=== PATIENT | male | born 1990 | race Two or more races ===

== ENCOUNTER 2023-04-16 06:07 | Inpatient (IN) | payer BC, SELFPAY ==
[2023-04-16 06:10] VITALS: BP 141/108; PULSE 122; RESP 16; TEMP 37.3; O2SAT 99; BMI 27.0
--- NOTE | 2023-04-16 06:40 | XR_ITS ---
The [address] [address] Patient Name: REX SHEIKH MRN: [id number] date: 1990 Sex: M Assigned Patient Location: ER Current Patient Location: .[facility] Accession/Order Number: [id number] Exam Date: 04/16/2023 06:45 Report Date: 04/16/2023 07:27 At the request of: THU MARKER Procedure: XR foot LT min 3V EXAM: XR foot LT min 3V HISTORY: Assess for osteomyelitis; technologist notes state diabetic with recurrent left great toe wound. COMPARISON: None. TECHNIQUE: AP, oblique and lateral views of the left foot performed. FINDINGS: The bony alignment and mineralization are within normal limits. There is no fracture, osseous destruction or periostitis. There are no plain film radiographic findings of acute osteomyelitis. The joint spaces are normal. There is a small enthesophyte at the calcaneal attachment of the plantar fascia. There is soft tissue prominence of the great toe. Correlation with clinical findings recommended to differentiate the patient's body habitus from soft tissue swelling. There is no soft tissue gas or radiopaque foreign body. XR/XR foot LT min 3V IMPRESSION: There is no acute osseous abnormality. There are no plain film radiographic findings of acute osteomyelitis. There is soft tissue prominence of the great toe. Correlation with clinical findings recommended to differentiate the patient's body habitus from soft tissue swelling. There is no soft tissue gas or radiopaque foreign body. Electronically authenticated by: ELISABETH ALMANZAR Date: 04/16/2023 07:27
--- NOTE | 2023-04-16 06:42 | ED.EXTPRO1 ---
HPI - Extremity Problem General Chief complaint: Wound/Laceration Stated complaint: L FOOT PAIN Time Seen by Provider: 04/16/23 06:17 Source: patient Mode of arrival: walk-in History of Present Illness HPI Narrative: This 32-year-old male who has been a type I diabetic since age 14 presents for evaluation of redness, pain and swelling to the medial aspect of the left great toe where he has a chronic Callus and ulcer. He has been seen in the past by Dr. Orellana from podiatry with recommendation for surgical removal of the area. He states that he is a poorly controlled diabetic because he only takes his insulin when he is not feeling well or he is dizzy and his hemoglobin A1c was very high so the surgery was not scheduled. 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 He has been seen and treated in this emergency department for this in the past. He states he has not been on antibiotics for several months. He also has pain in the left inguinal region. He states he had this pain in the past when he had an infection in the leg. There is no lymphangitic streaking. He denies any chest pain or shortness of breath. He states he did have some chills this morning but does not have a notable fever. Related Data Home Medications Medication Instructions Recorded Confirmed insulin detemir U-100 100 unit/mL 30 unit subcut DAILY 04/16/23 04/16/23 (3 mL) subcutaneous pen (Levemir FlexPen) Allergies Allergy/AdvReac Type Severity Reaction Status Date / Time No Known Drug Allergies Allergy Verified 04/16/23 09:55 Review of Systems ROS Status of ROS 10 or more systems reviewed and unremarkable except as noted in history and below [facility] Medical History (Updated 04/16/23 @ 16:54 by Andres Edwards DPM) Social History (Updated 04/16/23 @ 11:36 by Lotus Duggan) Within the past year, how often did you have a drink containing alcohol: 2-4 times a month Within the past year, how many standard drinks containing alcohol did you have on a typical day: 5 or 6 Within the past year, how often did you have six or more drinks on one occasion: never Total score: 4 Score interpretation: A score of 4 or more indicates drinking is likely to affect patient's safety. 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 Is afebrile, tachycardic with elevated blood pressure at 141/108 General: The patient appears well and in no apparent distress. Patient is resting comfortably on cart. Skin: Warm, dry, no pallor noted. There is no rash noted. Head: Normocephalic, atraumatic Eye: Normal conjunctiva, no drainage, EOMI. PERRL Ears, Nose, Mouth, and Throat: oral mucosa is moist. Cardiovascular: Regular Rate and Rhythm S1 and S2, no murmurs rubs or gallops, patient is tachycardic with pulse in the 120s Respiratory: Patient is in no distress, no accessory muscle use, lungs are clear to auscultation, no wheezing, rales or rhonchi Back: non-tender, no CVA tenderness bilaterally to percussion. GI: Normal bowel sounds, no tenderness to palpation, no masses appreciated. No rebound, guarding, or rigidity noted. Musculoskeletal: There is redness and swelling to the left great toe with a large, dry callous on the medial aspect of the left great toe, no drainage able to be expressed. There is no redness to the foot, ankle, knee or thigh, there is tenderness in the left inguinal region where there are some enlarged lymph nodes. Additional dry callous on the right great toe that does not appear to be infected. Neurological: A&O x4, normal speech Psychiatric: Cooperative Constitutional Vital Signs, click to edit/add: Last Vital Signs Temp 98.0 F 04/16/23 14:00 Pulse 88 04/16/23 14:00 Resp 18 04/16/23 14:00 BP 111/75 04/16/23 14:00 Pulse Ox 97 04/16/23 14:00 O2 Del Method Room Air 04/16/23 14:00 Course Vital Signs Vital signs: Vital Signs Temperature 99.1 F 04/16/23 06:10 Pulse Rate 122 H 04/16/23 06:10 Respiratory Rate 16 04/16/23 06:10 Blood Pressure 141/108 H 04/16/23 06:10 Pulse Oximetry 99 04/16/23 06:10 Oxygen Delivery Method Room Air 04/16/23 06:10 Temperature 98.0 F 04/16/23 14:00 Pulse Rate 88 04/16/23 14:00 Respiratory Rate 18 04/16/23 14:00 Blood Pressure 111/75 04/16/23 14:00 Pulse Oximetry 97 04/16/23 14:00 Oxygen Delivery Method Room Air 04/16/23 14:00 MDM - Extremity (Nontraumatic) MDM Narrative Medical decision making narrative: This 32-year-old male with a history of insulin-dependent diabetes who is noncompliant presents for evaluation of a chronic ulcer on the medial aspect of the left great toe which has recently become more inflamed, red with drainage that is purulent and foul-smelling. He was noted to be tachycardic with elevated blood pressure. He is not septic or toxic in appearance. An IV was placed and he was given IV Unasyn. Labs and x-ray were ordered. I also ordered an ultrasound of the left lower extremity due to pain in the inguinal region. He will be signed out to Dr. Hector at 7 AM. Lab Data Labs: Lab Results 04/16/23 Range/Units 06:40 WBC 16.2 H (4.0-11.0) 10^3/uL RBC 5.30 (4.70-6.10) 10^6/uL Hgb 15.7 (14.0-18.0) g/dL Hct 44.2 (42.0-54.0) % MCV 83.4 (80.0-94.0) fL MCH 29.6 (25.9-34.0) pg MCHC 35.5 H (29.9-35.2) g/dL RDW 13.5 (11.0-15.0) % Plt Count 278 (150-450) 10^3/uL MPV 9.4 L (9.5-13.5) fL Neut % (Auto) 76.6 H (43.0-75.0) % Lymph % (Auto) 14.5 L (20.5-60.0) % [place] % (Auto) 7.6 (1.7-12.0) % Eos % (Auto) 0.7 L (0.9-7.0) % Baso % (Auto) 0.2 (0.2-2.0) % Neut # (Auto) 12.4 H (1.4-6.5) 10^3/uL Lymph # (Auto) 2.4 (1.2-3.8) 10^3/uL [place] # (Auto) 1.2 H (0.3-0.8) 10^3/uL Eos # (Auto) 0.1 (0.0-0.7) 10^3/uL Baso # (Auto) 0.0 (0.0-0.1) 10^3/uL Abs Immat Gran (auto) 0.06 H (0.00-0.03) 10^3/uL Imm/Tot Granulo (auto) 0.4 (0.0-0.5) % ESR 14 (<=15) mm/hr Sodium 134 L (136-145) mmol/L Potassium 3.8 (3.5-5.1) mmol/L Chloride 97 L (98-107) mmol/L Carbon Dioxide 26.7 (21.0-32.0) mmol/L Anion Gap 14.1 BUN 14.0 (7.0-18.0) mg/dL Creatinine 1.05 (0.70-1.30) mg/dL Est GFR ( Amer) >60 (>=60) Est GFR (Non-Af Amer) >60 (>=60) BUN/Creatinine Ratio 13.3 Glucose 288 H (74-106) mg/dL Estimat Average Glucose 306 mg/dL Hemoglobin A1c 12.3 H (4.5-6.2) % Lactate 1.2 (0.4-2.0) mmol/L Calcium 9.1 (8.5-10.1) mg/dL Total Bilirubin 1.2 H (0.2-1.0) mg/dL AST 12 L (15-37) U/L ALT 26 (16-63) U/L Alkaline Phosphatase 109 (46-116) U/L C-Reactive Protein <0.2 (<=1.0) mg/dL Total Protein 8.2 (6.4-8.2) g/dL Albumin 4.2 (3.4-5.0) g/dL Globulin 4.0 g/dL Albumin/Globulin Ratio 1.0 Acetone, Qual Negative (NEGATIVE) Discharge Plan Discharge Chief Complaint: Wound/Laceration Clinical Impression: Diabetic foot ulcer associated with type 1 diabetes mellitus Patient Disposition: Admitted As Inpatient Time of Disposition Decision: 07:43 Condition: Good Discharge Date/Time: 04/16/23 09:34
--- NOTE | 2023-04-16 06:48 | US_ITS ---
The [place] [id number] Patient Name: REX SHEIKH MRN: [id number] date: 1990 Sex: M Assigned Patient Location: ED.MAIN Current Patient Location: ER Accession/Order Number: [id number] Exam Date: 04/16/2023 07:15 Report Date: 04/16/2023 07:39 At the request of: THU LEYVA Procedure: US venous doppler LE LT EXAMINATION: US venous doppler LE LT HISTORY: leg pain, swelling COMPARISON: No relevant comparison available. FINDINGS: REGION: Left lower extremity THROMBI: None. COMPRESSIBILITY: Normal compressibility. FLOW: Normal waveform and antegrade flow between 5 and 20 cm/s. OTHER: None. US/US venous doppler LE LT IMPRESSION: 1. No deep vein thrombus within the left lower extremity. Electronically authenticated by: YUE HUSTON Date: 04/16/2023 07:39
[2023-04-16 06:56] LABS: Acetone NEGATIVE (NEGATIVE); Basophils Percent Auto 0.2 % (0.2-2.0); Eosinophils Absolute Auto 0.1 10^3/uL (0.0-0.7); Eosinophils Percent Auto 0.7 % (0.9-7.0); Hematocrit 44.2 % (42.0-54.0); Hemoglobin 15.7 g/dL (14.0-18.0); Immature Granulocytes Abs Auto 0.06 10^3/uL (0.00-0.03); Immature Granulocytes Pct Auto 0.4 % (0.0-0.5); Lymphocytes Absolute Auto 2.4 10^3/uL (1.2-3.8); Lymphocytes Percent Auto 14.5 % (20.5-60.0); Mean Corpuscular HGB Conc 35.5 g/dL (29.9-35.2); Mean Corpuscular Hemoglobin 29.6 pg (25.9-34.0); Mean Corpuscular Volume 83.4 fL (80.0-94.0); Mean Platelet Volume 9.4 fL (9.5-13.5); Monocytes Absolute Auto 1.2 10^3/uL (0.3-0.8); Monocytes Percent Auto 7.6 % (1.7-12.0); Neutrophils Absolute Auto 12.4 10^3/uL (1.4-6.5); Neutrophils Percent Auto 76.6 % (43.0-75.0); Platelet Count 278 10^3/uL (150-450); Red Cell Distribution Width 13.5 % (11.0-15.0); White Blood Count 16.2 10^3/uL (4.0-11.0)
--- NOTE | 2023-04-16 07:00 | PC.NURSE ---
PATIENT C/O PAIN IN LEFT GREAT TOE AND LEFT GROIN. STATES HE HAS HAD THIS PAIN BEFORE LAST YEAR THE FIRST TIME THE TOE GOT INFECTED. HE WAS GIVEN ANTIBIOTICS AND FOLLOWED UP WITH ELISABETH CORADO FOR SURGERY. SURGERY WAS CANCELLED DUE TO PATIENT A1C BEING TOO HIGH. PATIENT IS UNCOMPLIANT TYPE 1 DIABETIC. STATES HE ONLY TAKES INSULIN WHEN HE FEELS HE NEEDS TOO. ALSO STATES HE ONLY TAKES HIS SUGAR WHEN HE FEELS LIKE IT. PATIENT STATES HE TAKES NONE OF HIS MEDS EVERYDAY. PATIENT STATES HE HAS BEEN PUTTING METAHONEY AND MONITORING TOE. TOE IS SWOLLEN, RED, POSSIBLE TUNNELING ITS HARD TO TELL WITH CALLUS. PATIENT HAS INTENSE PAIN WHEN TOUCHED. PAIN RADIATES TO LEFT GROIN. STATES HE HAS HAD FOUL SMELLING DRAINAGE BUT DOES NOT HAVE IT NOW
[2023-04-16] MEDS: AMPICILLIN SODIUM/SULBACTAM NA 3 GM in 0.9 % SODIUM CHLORIDE 100 ML IV (07:04)
[2023-04-16] MEDS: 0.9 % SODIUM CHLORIDE 1,000 ML 1000 ML IV (07:05)
[2023-04-16 07:06] LABS: Alanine Aminotransferase 26 U/L (16-63); Albumin Level 4.2 g/dL (3.4-5.0); Alkaline Phosphatase 109 U/L (46-116); Anion Gap 14.1; Aspartate Amino Transferase 12 U/L (15-37); BUN Creatinine Ratio 13.3; Bilirubin Total 1.2 mg/dL (0.2-1.0); Calcium 9.1 mg/dL (8.5-10.1); Carbon Dioxide 26.7 mmol/L (21.0-32.0); Chloride 97 mmol/L (98-107); Estimated GFR (African America >60 (>=60); Estimated GFR (Non-African Ame >60 (>=60); Glucose 288 mg/dL (74-106); Potassium 3.8 mmol/L (3.5-5.1); Sodium 134 mmol/L (136-145); Total Protein 8.2 g/dL (6.4-8.2)
[2023-04-16 07:09] LABS: Lactate/Lactic Acid 1.2 mmol/L (0.4-2.0)
[2023-04-16 07:33] LABS: C Reactive Protein <0.2 mg/dL (<=1.0)
[2023-04-16 07:43] LABS: Erythrocyte Sedimentation Rate 14 mm/hr (<=15)
[2023-04-16 07:48] VITALS: PULSE 110; O2SAT 97
--- NOTE | 2023-04-16 07:59 | ED_ITS ---
HPI - Wound/Laceration General Chief Complaint: Wound/Laceration Stated Complaint: L FOOT PAIN Time Seen by Provider: 04/16/23 06:17 Source: patient Mode of arrival: walk-in History of Present Illness HPI narrative: please see Dr. Black's full history and physical. Related Data Home Medications Medication Instructions Recorded Confirmed No Known Home Medications 04/16/23 04/16/23 Allergies Allergy/AdvReac Type Severity Reaction Status Date / Time No Known Drug Allergies Allergy Verified 04/16/23 06:18 PFSH PFSH Social History Smoking status: Current every day smoker Exam Constitutional Vital Signs, click to edit/add: Last Vital Signs Temp 99.1 F 04/16/23 06:10 Pulse 110 H 04/16/23 07:48 Resp 16 04/16/23 06:10 BP 141/108 H 04/16/23 06:10 Pulse Ox 97 04/16/23 07:48 O2 Del Method Room Air 04/16/23 06:10 Course Vital Signs Vital signs: Vital Signs Temperature 99.1 F 04/16/23 06:10 Pulse Rate 122 H 04/16/23 06:10 Respiratory Rate 16 04/16/23 06:10 Blood Pressure 141/108 H 04/16/23 06:10 Pulse Oximetry 99 04/16/23 06:10 Oxygen Delivery Method Room Air 04/16/23 06:10 Temperature 99.1 F 04/16/23 06:10 Pulse Rate 110 H 04/16/23 07:48 Respiratory Rate 16 04/16/23 06:10 Blood Pressure 141/108 H 04/16/23 06:10 Pulse Oximetry 97 04/16/23 07:48 Oxygen Delivery Method Room Air 04/16/23 06:10 MDM - Wound/Laceration MDM Narrative Medical decision making narrative: the patient has significant cellulitis of the left hallux. No evidence of osteomyelitis on the x-ray. WBC however is 16,000 and the entire toe is erythematous and swollen with extension of the erythema into the foot region. Case discussed with his environmental monitoring specialist, Dr. Orellana, and he'll be admitted. Findings are discussed thoroughly with the patient. Differential Diagnosis Differential diagnosis: Likely abscess and other (cellulitis, osteomyelitis) Lab Data Labs: Lab Results 04/16/23 Range/Units 06:40 WBC 16.2 H (4.0-11.0) 10^3/uL RBC 5.30 (4.70-6.10) 10^6/uL Hgb 15.7 (14.0-18.0) g/dL Hct 44.2 (42.0-54.0) % MCV 83.4 (80.0-94.0) fL MCH 29.6 (25.9-34.0) pg MCHC 35.5 H (29.9-35.2) g/dL RDW 13.5 (11.0-15.0) % Plt Count 278 (150-450) 10^3/uL MPV 9.4 L (9.5-13.5) fL Neut % (Auto) 76.6 H (43.0-75.0) % Lymph % (Auto) 14.5 L (20.5-60.0) % [place] % (Auto) 7.6 (1.7-12.0) % Eos % (Auto) 0.7 L (0.9-7.0) % Baso % (Auto) 0.2 (0.2-2.0) % Neut # (Auto) 12.4 H (1.4-6.5) 10^3/uL Lymph # (Auto) 2.4 (1.2-3.8) 10^3/uL [place] # (Auto) 1.2 H (0.3-0.8) 10^3/uL Eos # (Auto) 0.1 (0.0-0.7) 10^3/uL Baso # (Auto) 0.0 (0.0-0.1) 10^3/uL Abs Immat Gran (auto) 0.06 H (0.00-0.03) 10^3/uL Imm/Tot Granulo (auto) 0.4 (0.0-0.5) % ESR 14 (<=15) mm/hr Sodium 134 L (136-145) mmol/L Potassium 3.8 (3.5-5.1) mmol/L Chloride 97 L (98-107) mmol/L Carbon Dioxide 26.7 (21.0-32.0) mmol/L Anion Gap 14.1 BUN 14.0 (7.0-18.0) mg/dL Creatinine 1.05 (0.70-1.30) mg/dL Est GFR ( Amer) >60 (>=60) Est GFR (Non-Af Amer) >60 (>=60) BUN/Creatinine Ratio 13.3 Glucose 288 H (74-106) mg/dL Lactate 1.2 (0.4-2.0) mmol/L Calcium 9.1 (8.5-10.1) mg/dL Total Bilirubin 1.2 H (0.2-1.0) mg/dL AST 12 L (15-37) U/L ALT 26 (16-63) U/L Alkaline Phosphatase 109 (46-116) U/L C-Reactive Protein <0.2 (<=1.0) mg/dL Total Protein 8.2 (6.4-8.2) g/dL Albumin 4.2 (3.4-5.0) g/dL Globulin 4.0 g/dL Albumin/Globulin Ratio 1.0 Acetone, Qual Negative (NEGATIVE) Discharge Plan Discharge Chief Complaint: Wound/Laceration Clinical Impression: Diabetic foot ulcer associated with type 1 diabetes mellitus Patient Disposition: Admitted As Inpatient Time of Disposition Decision: 07:43 Condition: Good Mode of Transportation: Private Vehicle Prescriptions / Home Meds: No Action No Known Home Medications Instructions: Cellulitis (ED), Diabetic Foot Ulcers (ED) Stand Alone Forms: Portal Instructions Referrals: Physician,Non-Staff, MD [Primary Care Provider] - 1 week
[2023-04-16] MEDS: VANCOMYCIN HCL 1,000 MG in 0.9 % SODIUM CHLORIDE 250 ML 250 MG IV (08:50)
[2023-04-16 09:33] VITALS: BP 138/98
[2023-04-16 09:55] VITALS: BP 135/88; PULSE 98; RESP 18; TEMP 36.9; O2SAT 95; BMI 27.5
[2023-04-16 10:43] LABS: Estimated Average Glucose 306 mg/dL; Glycohemoglobin A1C 12.3 % (4.5-6.2)
[2023-04-16 11:02] LABS: Glucometer 334 mg/dL (74-106)
--- NOTE | 2023-04-16 11:09 | MR_ITS ---
The [address] [address] Patient Name: REX SHEIKH MRN: [id number] date: 1990 Sex: M Assigned Patient Location: ICU Current Patient Location: ICU Accession/Order Number: [id number] Exam Date: 04/16/2023 11:09 Report Date: 04/17/2023 13:05 At the request of: VICKY WALLACE Procedure: MR foot LT wo con EXAM: MR foot LT wo con REASON FOR EXAM: L foot chronic wound, abscess and cellulitis. TECHNIQUE: Multiplanar, multisequence imaging of the left foot was performed without contrast COMPARISON: Plain radiograph yesterday. FINDINGS: Study degraded by motion large [id number]. The bone marrow signal is without fracture or osteonecrosis. Shallow soft tissue ulceration along the plantar aspect of the first digit is present. No definite abnormal marrow signal identified to suggest osteomyelitis. Atrophy and edema the plantar musculature suggesting denervation. The midfoot is congruent. Achilles tendinosis without tear. No other evidence of ligamentous or tendinous injury. Lisfranc ligament is intact. MR/MR foot LT wo con IMPRESSION: 1. Shallow soft tissue ulceration without definite evidence of osteomyelitis at this time. Electronically authenticated by: OLIVIA GONCALVES Date: 04/17/2023 13:05
--- NOTE | 2023-04-16 11:09 | P.HP_ITS ---
H&P: HPI History of Present Illness Chief complaint: Left diabetic foot ulcer and pain Narrative: 32 y/o male to ER with left foot pain and diabetic ulcer. Diagnosed with DM at age 14 and admits to not taking good care of self or monitoring BS. Dealing with foot ulcer since June 2022 and following with wound care. 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 Increased drainage from foot over past few weeks. Over past 2-3 days noticed increased pain and odor coming from foot. To ER and WBC elevated. Low grade temp 99.1. X-ray negative for bony involvement and admitted for treatment. Review of Systems ROS Constitutional Denies: fever, chills or night sweats Cardiovascular Denies: chest pain, palpitations or edema Respiratory Denies: shortness of breath, cough or wheezing Gastrointestinal Denies: abdominal pain, nausea, vomiting or diarrhea Genitourinary Denies: painful urination [facility] Medical History (Updated 04/16/23 @ 11:15 by Karl Garzon MD) Social History Smoking status: Current every day smoker Meds Home Medications and Allergies Home Medications Medication Instructions Recorded Confirmed Type No Known Home Medications 04/16/23 04/16/23 History Allergies Allergy/AdvReac Type Severity Reaction Status Date / Time No Known Drug Allergies Allergy Verified 04/16/23 09:55 Exam Constitutional Vital Signs, click to edit/add: Last Vital Signs Temp 98.4 F 04/16/23 09:55 Pulse 98 H 04/16/23 09:55 Resp 18 04/16/23 09:55 BP 135/88 04/16/23 09:55 Pulse Ox 95 04/16/23 09:55 O2 Del Method Room Air 04/16/23 09:55 Documenting provider has reviewed patient's vital signs: yes Common normals: no apparent distress, oriented x3 and alert HENMT Common normals: normocephalic Eye Common normals: PERRL and EOMs intact bilaterally Respiratory Common normals: normal respiratory effort and clear to auscultation bilaterally Cardio Common normals: regular rate, regular rhythm, no gallops, no murmurs and no rub GI Common normals: Normal to inspection, nondistended, normoactive bowel sounds present and non-tender Extremity Common normals: no pedal edema Results Labs Labs: Short CBC 04/16/23 Range/Units 06:40 WBC 16.2 H (4.0-11.0) 10^3/uL Hgb 15.7 (14.0-18.0) g/dL Hct 44.2 (42.0-54.0) % Plt Count 278 (150-450) 10^3/uL BMP 04/16/23 06:40 Sodium 134 L Potassium 3.8 Chloride 97 L Carbon Dioxide 26.7 BUN 14.0 Creatinine 1.05 Glucose 288 H Calcium 9.1 Liver Function 04/16/23 Range/Units 06:40 Total Bilirubin 1.2 H (0.2-1.0) mg/dL AST 12 L (15-37) U/L ALT 26 (16-63) U/L Alkaline Phosphatase 109 (46-116) U/L Albumin 4.2 (3.4-5.0) g/dL Imaging X-ray left foot: Attestation: I have reviewed the pertinent imaging results. Assessment and Plan Assessment and Plan (1) Diabetic foot ulcer associated with type 1 diabetes mellitus: (2) Type 1 diabetes mellitus with hyperglycemia: (3) Type 1 diabetes mellitus with diabetic polyneuropathy: Plan Consult podiatry. Start vancomycin and zosyn for infection. Resume home insulin and sliding scale. Check A1C and monitor BS. Likely will need OR for debridement.
--- NOTE | 2023-04-16 11:37 | CM.NOTE ---
Rounds made with Dr. Garzon. Discussion regarding current Diabetic regimen explained. Dr. Garzon will consult Podiatry to determine plan of care.
[2023-04-16] MEDS: INSULIN ASPART 300 UNIT/3 ML PEN SUBQ ×3 (11:38→21:29)
[2023-04-16 11:42] VITALS: BMI 27.5
--- NOTE | 2023-04-16 11:59 | DIETREC ---
Recommend prostat @ 30 ml bid po for progressive wound healing
--- NOTE | 2023-04-16 12:02 | DIETREC ---
Diet Recommendation 2000 calorie diabetic diet ( regular diet consistency )
[2023-04-16] MEDS: 0.9 % SODIUM CHLORIDE 1,000 ML 70 ML IV (13:21)
[2023-04-16] MEDS: PIPERACILLIN SODIUM/TAZOBACTAM 3.375 GM in 0.9 % SODIUM CHLORIDE 50 ML IV ×2 (13:22→20:23)
[2023-04-16 14:00] VITALS: BP 111/75; PULSE 88; RESP 18; TEMP 36.7; O2SAT 97
--- NOTE | 2023-04-16 16:30 | P.PODCN_ITS ---
[facility] - Podiatry Data of Consult Patient: known to practice within the last 3 years Consult date: 04/16/23 Requesting physician: Karl Garzon MD Primary care provider: Non-Staff Physician, Consult Narrative Reason for consult: left great toe ulcer, cellulitis Narrative: Patient is a 32-year-old male presents to [facility] chief complaint of left hallux wound. He is known to our wound center previously and has been dealing with this wound since June 2022. Patient states that approximately 1 month ago he noticed the callus began to ulcerate and the wound returned. Approximately 3 to 4 days ago he noticed increased drainage and pain in the great toe. This morning he noticed chills and swollen lymph nodes in his groin and the pain became intense and he was unable to weight-bear and presented to the emergency department further evaluation. 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 He is type I diabetic but this has been uncontrolled. Admits to chills this morning which has subsided since admission. Denies any fever, nausea, vomiting, shortness of breath or chest pain. cc:: CC: Karl Garzon MD [facility] Medical History (Updated 04/16/23 @ 16:54 by Andres Edwards DPM) Social History (Updated 04/16/23 @ 11:36 by Lotus Duggan) Within the past year, how often did you have a drink containing alcohol: 2-4 times a month Within the past year, how many standard drinks containing alcohol did you have on a typical day: 5 or 6 Within the past year, how often did you have six or more drinks on one occasion: never Total score: 4 Score interpretation: A score of 4 or more indicates drinking is likely to affect patient's safety. 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 CFT brisk to all toes. Interval gradient warm to warm proximal distal with slight increase in warmth to the left hallux. There is erythema to the left hallux and dorsal forefoot. Tenderness with palpation of left inguinal lymph nodes. Neuro: Light touch and gross sensation intact. Protective sensation appears intact. DERM: Ulceration left plantar HIPJ region, unable to determine depth 2/2 over lying hyperkeratosis. Mild serous exudate with mild malodor is present. Mild fluctuance, no crepitus or bogginess. MSK: Significant palpatory tenderness to left hallux. L inguinal lymph nodes tender to palpation. Calf compartments soft and compressible, no pain with calf compression. Constitutional Vital Signs, click to edit/add: Last Vital Signs Temp 98.0 F 04/16/23 14:00 Pulse 88 04/16/23 14:00 Resp 18 04/16/23 14:00 BP 111/75 04/16/23 14:00 Pulse Ox 97 04/16/23 14:00 O2 Del Method Room Air 04/16/23 14:00 Assessment and Plan Assessment and Plan (1) Diabetic foot ulcer associated with type 1 diabetes mellitus: (2) Type 1 diabetes mellitus with hyperglycemia: (3) Type 1 diabetes mellitus with diabetic polyneuropathy: (4) Cellulitis of left foot: (5) Abscess of left foot: Plan Patient examined and evaluated. All findings were discussed with the patient and all questions answered to patient's satisfaction. Labs and imaging reviewed. WBC 16.1, ESR 14, CRP <0.2, Glu 288 A1c 12.3. XR did not show any cortical erosive changes to the hallux in the region underlying the ulcer. L hallux significantly tender to touch and unable to tolerate palpation or debri suman of the ulcer. I do suspect an underlying abscess. I would recommend obtaining MRI to evaluate extent of underlying abscess and any bone involvement, tentatively plan for I&D with excisional debridement of the left hallux wound with deep cultures in the operative setting likely AM. Cont empiric IV Abx and will evaluate in AM for improvement. Dress with BTD paint and 4x4 gauze daily. Rest per primary. Stressed importance of tight glucose management with patient. States he stopped seeing his primary and monitoring his glucose since he was not able to get an insulin pump. Will follow.
[2023-04-16 17:18] LABS: Glucometer 290 mg/dL (74-106)
[2023-04-16] MEDS: VANCOMYCIN HCL 1,750 MG in 0.9 % SODIUM CHLORIDE 500 ML 250 MG IV (18:37)
[2023-04-16 21:28] LABS: Glucometer 295 mg/dL (74-106)
[2023-04-16] MEDS: INSULIN DETEMIR 300 UNIT/3 ML INSULN.PEN 30 UNIT SUBQ (21:30)
[2023-04-16 21:35] VITALS: BP 117/75; PULSE 86; RESP 18; TEMP 36.6; O2SAT 96
[2023-04-17] MEDS: PIPERACILLIN SODIUM/TAZOBACTAM 3.375 GM in 0.9 % SODIUM CHLORIDE 50 ML IV ×3 (03:06→20:21)
[2023-04-17] MEDS: 0.9 % SODIUM CHLORIDE 1,000 ML 70 ML IV ×2 (03:07→17:47)
[2023-04-17 04:38] LABS: Basophils Percent Auto 0.5 % (0.2-2.0); Eosinophils Absolute Auto 0.1 10^3/uL (0.0-0.7); Eosinophils Percent Auto 1.6 % (0.9-7.0); Hematocrit 38.9 % (42.0-54.0); Hemoglobin 13.4 g/dL (14.0-18.0); Immature Granulocytes Abs Auto 0.02 10^3/uL (0.00-0.03); Immature Granulocytes Pct Auto 0.4 % (0.0-0.5); Lymphocytes Absolute Auto 1.7 10^3/uL (1.2-3.8); Mean Corpuscular HGB Conc 34.4 g/dL (29.9-35.2); Mean Corpuscular Hemoglobin 29.3 pg (25.9-34.0); Mean Corpuscular Volume 85.1 fL (80.0-94.0); Mean Platelet Volume 9.5 fL (9.5-13.5); Monocytes Absolute Auto 0.7 10^3/uL (0.3-0.8); Monocytes Percent Auto 11.6 % (1.7-12.0); Neutrophils Absolute Auto 3.2 10^3/uL (1.4-6.5); Neutrophils Percent Auto 55.9 % (43.0-75.0); Platelet Count 238 10^3/uL (150-450); Red Blood Count 4.57 10^6/uL (4.70-6.10); Red Cell Distribution Width 13.5 % (11.0-15.0); White Blood Count 5.7 10^3/uL (4.0-11.0)
[2023-04-17 04:49] LABS: Anion Gap 7.3; BUN Creatinine Ratio 9.5; Calcium 8.1 mg/dL (8.5-10.1); Carbon Dioxide 27.4 mmol/L (21.0-32.0); Chloride 105 mmol/L (98-107); Estimated GFR (African America >60 (>=60); Estimated GFR (Non-African Ame >60 (>=60); Glucose 192 mg/dL (74-106); Potassium 3.7 mmol/L (3.5-5.1); Sodium 136 mmol/L (136-145)
[2023-04-17] MEDS: VANCOMYCIN HCL 1,750 MG in 0.9 % SODIUM CHLORIDE 500 ML 250 MG IV ×2 (05:43→17:47)
[2023-04-17 05:50] VITALS: BP 127/83; PULSE 81; RESP 20; TEMP 36.9; O2SAT 95
[2023-04-17 07:24] LABS: Glucometer 147 mg/dL (74-106)
--- NOTE | 2023-04-17 08:26 | P.PN_ITS ---
Progress Note: Subjective Subjective Interval history: Patient seen this a.m. resting comfortably in bed. Denies any acute events overnight. States that the left foot is still painful but has improved, and he is no longer having pain in his inguinal region. Denies any fever chills nausea vomiting shortness of breath or chest pain. Exam Narrative Exam Narrative: Vascular: DP and PT pulses strongly palpable left lower extremity. CFT brisk to all toes. Interval gradient warm to warm proximal distal with slight increase in warmth to the left hallux. There is erythema to the left hallux Which is moderately improved. Erythema to the dorsal forefoot Is no longer present. No tenderness with palpation of left inguinal lymph nodes. Neuro: Light touch and gross sensation intact. Protective sensation appears intact. DERM: Punctate full-thickness ulceration left plantar H IPJ, significant surrounding hyperkeratosis. Probes to subcutaneous layer. Mild serous exudate with mild malodor is present. Mild fluctuance, no crepitus or bogginess. Hyperkeratosis right plantar H IPJ, no open lesions right lower extremity. MSK: Palpatory tenderness to left hallux. L inguinal lymph nodes nontender to palpation. Calf compartments soft and compressible, no pain with calf compression. Constitutional Vital Signs, click to edit/add: Last Vital Signs Temp 98.4 F 04/17/23 05:50 Pulse 81 04/17/23 05:50 Resp 20 04/17/23 05:50 BP 127/83 04/17/23 05:50 Pulse Ox 95 04/17/23 05:50 O2 Del Method Room Air 04/17/23 05:50 Progress Note: Objective Labs Labs: Short CBC 04/17/23 Range/Units 04:10 WBC 5.7 (4.0-11.0) 10^3/uL Hgb 13.4 L (14.0-18.0) g/dL Hct 38.9 L (42.0-54.0) % Plt Count 238 (150-450) 10^3/uL BMP 04/17/23 04:10 Sodium 136 Potassium 3.7 Chloride 105 Carbon Dioxide 27.4 BUN 9.0 Creatinine 0.95 Glucose 192 H Calcium 8.1 L Progress Note: A&P Assessment and Plan (1) Diabetic foot ulcer associated with type 1 diabetes mellitus: (2) Type 1 diabetes mellitus with hyperglycemia: (3) Type 1 diabetes mellitus with diabetic polyneuropathy: (4) Cellulitis of left foot: (5) Abscess of left foot: Plan Patient examined and evaluated. All findings were discussed with the patient a nd all questions answered to patient's satisfaction. Labs and imaging reviewed. WBC 5.7, down from 16.1 Yesterday AM. (ESR 14, CRP <0.2, Glu 288 A1c 12.3 04/16/2023). XR did not show any cortical erosive changes to the hallux in the region underlying the ulcer. Pain to the left hallux is somewhat improving. He denies any tenderness or swelling in his inguinal region today. If he is able to tolerate bedside debridement later today will attempt. MRI scheduled for 1130 today. If no underlying abscess, bedside debridement may be all that is needed. However trip to the OR for I&D with debridement under sedation may still be required if he is unable to tolerate at bedside, and/or there is underlying abscess found on MRI. Cont empiric IV Abx, Has shown improvement thus far. Dress with BTD paint and 4x4 gauze daily. Rest per primary. Stressed importance of tight glucose management with patient. States he stopped seeing his primary and monitoring his glucose since he was not able to get an insulin pump. Will follow
--- NOTE | 2023-04-17 10:25 | CM.NOTE ---
Rounds made with Dr. Garzon, discussed pt having MRI today and possible OR tomorrow for I&D. Pt verbalizes understanding. Plan of care depending on MRI of foot.
--- NOTE | 2023-04-17 10:31 | PM.PN ---
Progress Note: Subjective Subjective Interval history: Patient feels better this am. Pain improved and tolerable with medication. Afebrile. Normal appetite and no nausea or emesis. No chest pain or palpitations. Evaluated by podiatry and MRI foot ordered for later this am. Plan on debridement either at bedside or in OR tomorrow. Exam Constitutional Vital Signs, click to edit/add: Last Vital Signs Temp 98.4 F 04/17/23 05:50 Pulse 81 04/17/23 05:50 Resp 20 04/17/23 05:50 BP 127/83 04/17/23 05:50 Pulse Ox 95 04/17/23 05:50 O2 Del Method Room Air 04/17/23 05:50 Documenting provider has reviewed patient's vital signs: yes Common normals: no apparent distress, oriented x3 and alert HENMT Common normals: normocephalic Eye Common normals: PERRL and EOMs intact bilaterally Respiratory Common normals: normal respiratory effort and clear to auscultation bilaterally Cardio Common normals: regular rate, regular rhythm, no gallops, no murmurs and no rub GI Common normals: Normal to inspection, nondistended, normoactive bowel sounds present and non-tender Extremity Common normals: no pedal edema Progress Note: Objective Labs Labs: Short CBC 04/17/23 Range/Units 04:10 WBC 5.7 (4.0-11.0) 10^3/uL Hgb 13.4 L (14.0-18.0) g/dL Hct 38.9 L (42.0-54.0) % Plt Count 238 (150-450) 10^3/uL BMP 04/17/23 04:10 Sodium 136 Potassium 3.7 Chloride 105 Carbon Dioxide 27.4 BUN 9.0 Creatinine 0.95 Glucose 192 H Calcium 8.1 L Progress Note: A&P Assessment and Plan (1) Diabetic foot ulcer associated with type 1 diabetes mellitus: (2) Cellulitis of left foot: (3) Type 1 diabetes mellitus with hyperglycemia: (4) Type 1 diabetes mellitus with diabetic polyneuropathy: Plan Improving with antibiotics and continue. MRI later today and surgical plan per podiatry. BS improved and A1C 12.3. Resumed insulin and cover with sliding scale. Monitor glucose and vitals.
[2023-04-17 12:05] LABS: Glucometer 247 mg/dL (74-106)
[2023-04-17] MEDS: INSULIN ASPART 300 UNIT/3 ML PEN SUBQ ×2 (13:22→21:22)
[2023-04-17 13:57] VITALS: BP 149/73; PULSE 88; RESP 18; TEMP 36.8; O2SAT 97
[2023-04-17 17:00] LABS: Glucometer 257 mg/dL (74-106)
[2023-04-17] MEDS: ACETAMINOPHEN 500 MG TABLET 1000 MG PO (19:33)
[2023-04-17 19:37] VITALS: BP 137/87; PULSE 80; RESP 16; TEMP 36.7; O2SAT 97
[2023-04-17 19:47] LABS: Glucometer 249 mg/dL (74-106)
[2023-04-17] MEDS: INSULIN DETEMIR 300 UNIT/3 ML INSULN.PEN 30 UNIT SUBQ (21:23)
[2023-04-18] MEDS: PIPERACILLIN SODIUM/TAZOBACTAM 3.375 GM in 0.9 % SODIUM CHLORIDE 50 ML IV (03:01)
[2023-04-18 04:59] LABS: Basophils Percent Auto 0.4 % (0.2-2.0); Eosinophils Absolute Auto 0.1 10^3/uL (0.0-0.7); Eosinophils Percent Auto 1.7 % (0.9-7.0); Hematocrit 39.4 % (42.0-54.0); Hemoglobin 13.7 g/dL (14.0-18.0); Immature Granulocytes Abs Auto 0.01 10^3/uL (0.00-0.03); Immature Granulocytes Pct Auto 0.2 % (0.0-0.5); Lymphocytes Absolute Auto 2.3 10^3/uL (1.2-3.8); Lymphocytes Percent Auto 42.4 % (20.5-60.0); Mean Corpuscular HGB Conc 34.8 g/dL (29.9-35.2); Mean Corpuscular Hemoglobin 29.6 pg (25.9-34.0); Mean Corpuscular Volume 85.1 fL (80.0-94.0); Mean Platelet Volume 9.4 fL (9.5-13.5); Monocytes Absolute Auto 0.6 10^3/uL (0.3-0.8); Monocytes Percent Auto 11.3 % (1.7-12.0); Neutrophils Absolute Auto 2.4 10^3/uL (1.4-6.5); Platelet Count 224 10^3/uL (150-450); Red Blood Count 4.63 10^6/uL (4.70-6.10); Red Cell Distribution Width 13.4 % (11.0-15.0); White Blood Count 5.4 10^3/uL (4.0-11.0)
[2023-04-18 05:01] LABS: Anion Gap 11.3; BUN Creatinine Ratio 6.1; Calcium 8.6 mg/dL (8.5-10.1); Chloride 104 mmol/L (98-107); Estimated GFR (African America >60 (>=60); Estimated GFR (Non-African Ame >60 (>=60); Glucose 190 mg/dL (74-106); Potassium 3.3 mmol/L (3.5-5.1); Sodium 139 mmol/L (136-145)
[2023-04-18 05:18] VITALS: BP 122/77; PULSE 67; TEMP 36.6; O2SAT 95
[2023-04-18] MEDS: VANCOMYCIN HCL 1,750 MG in 0.9 % SODIUM CHLORIDE 500 ML 250 MG IV (06:14)
--- NOTE | 2023-04-18 09:14 | CM.NOTE ---
Rounds made with Dr. Garzon, ok for discharge today and f/u with wound. Pt asking about insulin pump, Dr. Garzon discussed about establishing primary care doctor (recommend Matt). Pt agrees, RN will set up appt upon discharge.
--- NOTE | 2023-04-18 09:44 | PM.DS1 ---
DS: Providers Provider Date of admission: 04/16/23 08:56 Primary care physician: Non-Staff Physician, Consults: 04/16/23 08:26 Consult to Podiatry Routine Consulting Provider: Levon Orellana 04/16/23 08:29 Consult to Hospitalist Routine Consulting Provider: Karl Garzon 04/16/23 10:24 Consult to Podiatry Routine Consulting Provider: Levon Orellana DS: Diagnosis Discharge Diagnosis (1) Diabetic foot ulcer associated with type 1 diabetes mellitus: (2) Cellulitis of left foot: (3) Type 1 diabetes mellitus with hyperglycemia: (4) Type 1 diabetes mellitus with diabetic polyneuropathy: DS: Summary Hospital Course Hospital Course: Reason for admission: See H&P for details. 32 y/o male to ER with left foot pain and diabetic ulcer. Diagnosed with DM at age 14 and admits to not taking good care of self or monitoring BS. Dealing with foot ulcer since June 2022 and following with wound care. 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 Increased drainage from foot over past few weeks. Over past 2-3 days noticed increased pain and odor coming from foot. To ER and WBC elevated. Low grade temp 99.1. X-ray negative for bony involvement and admitted for treatment. Hospital course: Started vanco and zosyn. Podiatry consulted. Started levemir 30 units QHS and insulin sliding scale. A1C 12.3. Improved with IV antibiotics. Pain and redness improved. WBC normal and afebrile. MRI performed and was negative for sandi involvement. Pain improved enough that podiatry able to perform bedside debridement. BS improved and minimal pain. Discharged home in stable condition. Will take augmentin and bactrim x 14 days. Continue levemir. F/u with podiatry next week and PCP in 2-4 weeks. Time Spent with Patient Time attestation: Total time spent providing and/or coordinating discharge services: Exam Constitutional Vital Signs, click to edit/add: Last Vital Signs Temp 97.8 F 04/18/23 05:18 Pulse 67 04/18/23 05:18 Resp 16 04/17/23 19:37 BP 122/77 04/18/23 05:18 Pulse Ox 95 04/18/23 05:18 O2 Del Method Room Air 04/18/23 05:18 Documenting provider has reviewed patient's vital signs: yes Common normals: no apparent distress, oriented x3 and alert HENMT Common normals: normocephalic Eye Common normals: PERRL and EOMs intact bilaterally Respiratory Common normals: normal respiratory effort and clear to auscultation bilaterally Cardio Common normals: regular rate, regular rhythm, no gallops, no murmurs and no rub GI Common normals: Normal to inspection, nondistended, normoactive bowel sounds present and non-tender Extremity Common normals: no pedal edema DS: Data Data Completed and Pending Labs on day of discharge: Labs from last 24 hours 04/18/23 04/17/23 04/17/23 04:08 19:46 16:59 WBC 5.4 RBC 4.63 L Hgb 13.7 L Hct 39.4 L MCV 85.1 MCH 29.6 MCHC 34.8 RDW 13.4 Plt Count 224 MPV 9.4 L Neut % (Auto) 44.0 Lymph % (Auto) 42.4 [place] % (Auto) 11.3 Eos % (Auto) 1.7 Baso % (Auto) 0.4 Neut # (Auto) 2.4 Lymph # (Auto) 2.3 [place] # (Auto) 0.6 Eos # (Auto) 0.1 Baso # (Auto) 0.0 Abs Immat Gran (auto) 0.01 Imm/Tot Granulo (auto) 0.2 Sodium 139 Potassium 3.3 L Chloride 104 Carbon Dioxide 27.0 Anion Gap 11.3 BUN 6.0 L Creatinine 0.99 Est GFR ( Amer) >60 Est GFR (Non-Af Amer) >60 BUN/Creatinine Ratio 6.1 Glucose 190 H Calcium 8.6 POC Glucose 249 H 257 H 04/17/23 12:04 WBC RBC Hgb Hct MCV MCH MCHC RDW Plt Count MPV Neut % (Auto) Lymph % (Auto) [place] % (Auto) Eos % (Auto) Baso % (Auto) Neut # (Auto) Lymph # (Auto) [place] # (Auto) Eos # (Auto) Baso # (Auto) Abs Immat Gran (auto) Imm/Tot Granulo (auto) Sodium Potassium Chloride Carbon Dioxide Anion Gap BUN Creatinine Est GFR ( Amer) Est GFR (Non-Af Amer) BUN/Creatinine Ratio Glucose Calcium POC Glucose 247 H Discharge Plan Discharge Disposition: Home, Self-Care Condition: Good Discharge Medications: New amoxicillin-pot clavulanate 875-125 mg tablet 1 tab PO Q12H 14 Days Qty: 28 0RF sulfamethoxazole-trimethoprim [Bactrim DS] 800-160 mg tablet 1 tab PO BID 14 Days Qty: 28 0RF Continued Levemir FlexPen 100 unit/mL (3 mL) insulin pen 30 unit subcut DAILY Qty: 5 0RF Activity: increase activity as tolerated Diet: advance to your usual diet Forms: Portal Instructions
[2023-04-18] MEDS: INSULIN ASPART 300 UNIT/3 ML PEN SUBQ (10:04)
[2023-04-18] MEDS: ACETAMINOPHEN 500 MG TABLET 1000 MG PO (10:05)
--- NOTE | 2023-04-24 10:17 | CM.DCFOLLOWU ---
Person spoke with:patient Patient is at [facility] currently.
== END 2023-04-18 10:30 | disposition home or self-care (01) | DRG 623 ==
LOC: ER 08:29 → MS 09:06 → ICU 15:17 → MS 04-17 20:56
PROVIDERS: Emergency Medicine; Admitting Provider Family Medicine; Emergency Provider Emergency Medicine; Visit Provider Family Medicine
DX: E10.621 Type 1 diabetes mellitus with foot ulcer (principal); L02.612 Cutaneous abscess of left foot; L03.116 Cellulitis of left lower limb; E10.65 Type 1 diabetes mellitus with hyperglycemia; E10.42 Type 1 diabetes mellitus with diabetic polyneuropathy; L97.519 Non-pressure chronic ulcer of other part of right foot with unspecified severity; E10.628 Type 1 diabetes mellitus with other skin complications; F17.210 Nicotine dependence, cigarettes, uncomplicated; Z79.4 Long term (current) use of insulin; Z91.148 Patient's other noncompliance with medication regimen for other reason; L97.522 Non-pressure chronic ulcer of other part of left foot with fat layer exposed
CPT/HCPCS: 36415; 73630; 73718; 80048; 80053; 80202; 82009; 82948; 83036; 83605; 85025; 85652; 86140; 87040; 93971; 96365; 96366; 96367; 96368; 99285; J3370

== ENCOUNTER 2023-04-18 17:55 | Emergency (ER) | payer BC, SELFPAY ==
[2023-04-18 18:00] VITALS: BP 140/90; PULSE 82; RESP 22; TEMP 36.6; O2SAT 99
== END 2023-04-18 19:09 | disposition left against medical advice (07) ==
LOC: ER 18:24
PROVIDERS: Emergency Provider Emergency Medicine
DX: Z53.21 Procedure and treatment not carried out due to patient leaving prior to being seen by health care provider (principal)
CPT/HCPCS: 80053

== ENCOUNTER 2023-05-01 08:25 | Outpatient (REF) | payer BC, SELFPAY ==
[2023-05-01 09:14] LABS: Estimated GFR (African America 19 (>=60); Estimated GFR (Non-African Ame 16 (>=60); Potassium 3.5 mmol/L (3.5-5.1)
== END 2023-05-01 08:26 | disposition home or self-care (01) ==
LOC: LAB 08:25
PROVIDERS: Visit Provider Internal Medicine
DX: N17.9 Acute kidney failure, unspecified (principal); E87.6 Hypokalemia
CPT/HCPCS: 36415; 82565; 84132

== ENCOUNTER 2023-05-14 13:13 | Outpatient (OUT) | payer BC, SELFPAY ==
[2023-05-14 14:00] LABS: Anion Gap 12.2; BUN Creatinine Ratio 11.8; Calcium 9.8 mg/dL (8.5-10.1); Chloride 98 mmol/L (98-107); Estimated GFR (African America 44 (>=60); Estimated GFR (Non-African Ame 36 (>=60); Glucose 342 mg/dL (74-106); Potassium 4.2 mmol/L (3.5-5.1); Sodium 134 mmol/L (136-145)
== END 2023-05-14 13:14 | disposition home or self-care (01) ==
LOC: LAB 13:14
PROVIDERS: Visit Provider Internal Medicine
DX: N17.9 Acute kidney failure, unspecified (principal)
CPT/HCPCS: 36415; 80048